=== PATIENT | male | born 1985 | race Caucasian/White ===

== ENCOUNTER 2019-11-10 20:13 | Emergency (ER) | payer BC ==
[~2019-11-10] VITALS: Ht 182.9 cm; Wt 81.7 kg
[2019-11-10] MEDS ORDERED: XANAX 0.5 MG0.5 MG PO (21:39)
[2019-11-10 21:42] VITALS: BP 144/82
--- NOTE | 2019-11-11 16:05 | EKG ---
[facility] [place] [address] ELECTROCARDIOGRAM REPORT Name: VINICIUSEDMAR Room #: DEP [facility] [id number] Admission: 11/10/19 Attend Phys: Discharge: 11/10/19 Date of : 85 Report #: [id number] THIS REPORT FOR: cc: FAM - Family physician unknown FAM - Family physician unknown Anthony Au MD ~ THIS REPORT FOR: //name// [facility] ED Test Date: 2019-11-10 Test Time: 20:34:42 Pat Name: EDMAR COLVIN Department: Room: Gender: Music Worker: SILVINA BILLS : 1985 Requested By: Erich Negrete Order Number: [id number] MD: Anthony Au Measurements Intervals [place] Rate: 86 P: 22 NV: 144 QRS: 15 QRSD: 80 T: 18 QT: 363 QTc: 434 Interpretive Statements Sinus rhythm Probable left atrial enlargement No previous ECG available for comparison Electronically Signed On 11-11-2019 16:05:32 CDT by Anthony Au [email or web address] <ELECTRONICALLY SIGNED> By: Anthony Au MD 11/11/19 [id number] 33 Anthony Au MD /SONU
== END 2019-11-10 21:46 | disposition home or self-care (01) ==
LOC: ER 20:13
DX: F41.9 Anxiety disorder, unspecified (principal); R42 Dizziness and giddiness; R00.2 Palpitations; Z88.0 Allergy status to penicillin; F32.9 Major depressive disorder, single episode, unspecified